=== PATIENT | male | born 1935 | race Caucasian/White ===

== ENCOUNTER 2018-08-29 13:44 | Observation (INO) ==
--- NOTE | 2018-08-29 14:37 | Emergency Department Note ---
Disposition Clinical Impression: Nonsustained ventricular tachycardia Syncope Qualifiers: Syncope type: unspecified Qualified Code(s): R55 - Syncope and collapse Disposition: Admitted As Inpatient Condition: Good Time of Disposition: 16:00 General Adult HPI - General Chief complaint: ED Arrhythmia/Palpitations Stated complaint: "passed out" Time Seen by Provider: 08/29/18 13:54 Source: patient, family (Son), EMS Mode of arrival: EMS Limitations: no limitations Nursing Notes Reviewed: Yes Vital Signs Reviewed: Yes - History of Present Illness HPI Narrative: 83-year-old male history of CAD and chronic atrial fibrillation on Coumadin presents emergency department via EMS for lightheadedness. EMS reports call out to home residency as the patient was feeling dizzy appeared cool clammy and pale. On arrival they state the patient was warm pink and in no acute distress and similar to his presentation here in the emergency department. Patient was found to be and atrial fibrillation with rapid ventricular response seen on the monitor by the commodities requirements analyst. The patient states earlier today around 10 AM ap proximately 4 hours prior to arrival he was in the bathroom shaving when he felt lightheaded and went to the living room to sit down. He felt like he was going to pass out. Denies vertiginous symptoms. Denies any fall or head injury. He denied any shortness of breath or chest pain. Denies skipping beats or racing of the heart. At this time he states he feels much better. Denies any recent il lness cough congestion. He used to see Dr. Wilcox his vending machine host/hostess and currently only sees his primary care physician. He states he has a cardiac evaluation scheduled for September and was told that he needs pacemaker. He denies any bloody stool, black tarry stool, hematemesis or hemoptysis. No recent changes to his medication. He states his recent INR check was normal but is unaware of the value. Gets it checked on a monthly basis. Pain Scale: 0 - Related Data Home Medications Medication Instructions Recorded Confirmed LORazepam [Ativan] 1 mg PO BID 11/01/17 08/29/18 Omeprazole [PriLOSEC] 20 mg PO BIDAC 11/01/17 08/29/18 Potassium Chloride [K-Tab ER] 20 meq PO DAILY 11/01/17 08/29/18 Simvastatin [Zocor] 40 mg PO HS 11/01/17 08/29/18 Atenolol [Tenormin] 50 mg PO DAILY 08/29/18 08/29/18 Carbidopa/Levodopa 1 tab PO Q6H 08/29/18 08/29/18 [Carbidopa-Levodopa 25-250 Tab] Doxazosin Mesylate [Cardura] 8 mg PO HS 08/29/18 08/29/18 Levothyroxine [Synthroid] 125 mcg PO DAILY 08/29/18 08/29/18 Losartan Potassium [Cozaar] 100 mg PO DAILY 08/29/18 08/29/18 Warfarin 08/29/18 08/29/18 Allergies Allergy/AdvReac Type Severity Reaction Status Date / Time No Known Allergies Allergy Verified 11/01/17 11:23 All systems ED: reviewed and negative except as stated. Review of Systems: As Per HPI Constitutional: Denies: fever, chills, weakness, weight change ENT ED: Denies: congestion Cardiovascular: Reports: syncope. Denies: chest pain, palpitations Respiratory: Denies: cough, dyspnea Gastrointestinal: Denies: abdominal pain, nausea, vomiting Genitourinary: Denies: dysuria Musculoskeletal: Denies: back pain Integumentary: Denies: rash Neurological: Denies: headache, weakness, numbness, vertigo Endocrine: Denies: fatigue Past Medical History - Past Medical History Attestation: Yes The following information was validated with the patient. Source: patient Medical history: Reports: atrial fibrillation, coronary artery disease, CVA, GERD, hyperlipidemia, hypertension, myocardial infarction, thyroid disease Surgical history: Reports: angioplasty/stent, appendectomy, herniorrhaphy Psychiatric history: Reports: no psych history - Social History Smoking Status: Never smoker Smokeless Tobacco Status: No Alcohol use: Reports: none Drug use: Reports: none Physical Exam - General Limitations: no limitations General appearance: alert, in no apparent distress - Head Head exam: atraumatic, normocephalic, normal inspection - Eye Eye exam: Present: normal appearance, PERRL, EOMI - ENT ENT exam: normal exam, normal oropharynx, mucous membranes moist - Neck Neck exam: Present: normal inspection, full ROM, trachea midline - Chest Chest inspection: Present: normal inspection, symmetric chest wall rise. Absent: tenderness - Respiratory Respiratory exam: Present: normal lung sounds bilaterally - Cardiovascular Cardiovascular exam: Present: tachycardia, irregular rhythm. Absent: systolic murmur, diastolic murmur - Expanded Cardiovascular Exam Peripheral pulses: 2+: radial (R), radial (L) - Abdominal Exam Abdominal exam: Present: soft, Non-Tender, normal bowel sounds. Absent: tenderness, distention, guarding, rebound, rigidity - Extremities Exam Extremities exam: Present: normal inspection, full ROM, normal capillary refill. Absent: tenderness, pedal edema - Back Exam Back exam: Present: normal inspection, full ROM. Absent: tenderness - Neurological Exam Neurological exam: Present: alert, oriented X3, CN II-XII intact - Expanded Neurological Exam Patient oriented to: Present: person, place, time Speech: Present: fluid speech Cranial nerves: EOM function (II, III, IV, ): Normal, facial sensation (V): Normal, facial palsy (VII): Normal, gag reflex (IX): Normal, spinal accessory function (XI): Normal, tongue deviation (XII): Normal Motor strength - LUE: 5/5 Motor strength - RUE: 5/5 Motor strength - LLE: 5/5 Motor strength - RLE: 5/5 Upper motor neuron exam: ángel neglect: Absent bilaterally Sensory exam upper extremity: light touch: Normal Sensory exam lower extremity: light touch: Normal - Psychiatric Psychiatric exam: Present: normal affect, normal mood - Skin Skin exam: Present: warm, dry, intact, normal color. Absent: rash, cyanosis, diaphoresis, pallor Course Course Narrative: Patient presents with a near syncopal episode. History of chronic atrial fibrillation. Per reports it was reported his heart rate was significantly elevated in the 130s. Concern for atrial fibrillation with rapid ventricular response. Workup initiated. Remains neurologically intact awake alert and oriented to person place and time. - Reevaluation(s) Reevaluation #1: Patient had non-sustained ventricular tachycardia. This was caught on the rhythm strip. Time: 14:20 Reevaluation #2: My attending Dr. Stoner spoke to the on-call vending machine host/hostess who recommends close monitoring and does not recommend initiating amiodarone at this time as the patient was asymptomatic during the run of ventricular tachycardia. Patient's labs or otherwise unremarkable. TSH within normal limits. Glucose slightly elevated. Patient will be admitted for observation given his syncopal episode and nonsustained ventricular tachycardia. - Consultations Consultation #1: Spoke with on-call hospitalist rebecca Mak to admit for syncope and unsustained ventricular tachycardia. No further orders at this time Time: 16:01 Vital Signs Temperature 97.9 F 08/29/18 13:49 Pulse Rate 95 08/29/18 13:49 Respiratory Rate 20 08/29/18 13:49 Blood Pressure 157/102 08/29/18 13:49 O2 Sat by Pulse Oximetry 98 08/29/18 13:49 Temperature 97.9 F 08/29/18 13:49 Pulse Rate 87 08/29/18 16:00 Respiratory Rate 18 08/29/18 16:00 Blood Pressure 165/82 08/29/18 16:00 O2 Sat by Pulse Oximetry 97 08/29/18 16:00 Oxygen Delivery Oxygen Delivery Room Air Medical Decision Making - MDM Narrative Medical decision making narrative: Patient was discussed with my attending physician who agrees with ED management and final disposition. They independently evaluated the patient. Please refer to their attestation to this encounter for additional information. This note was generated by [employer] voice recognition software and as a result grammatical or spelling errors may occur using this program. - Medical Records Medical records reviewed: Yes I reviewed the patient's medical records. - Lab Data Lab results reviewed: Yes I reviewed the patient's lab results. Result diagrams: 08/29/18 13:53 08/29/18 13:53 Lab Results 08/29/18 08/29/18 08/29/18 Range/Units 13:53 13:53 13:53 WBC 6.1 (4.3-11.1) K/mcL RBC 4.02 L (4.19-5.50) M/mcL Hgb 13.1 (12.9-16.9) g/dL Hct 38.8 (37.5-50.1) % MCV 96.5 (83.0-100.0) fL MCH 32.6 (28.0-33.3) pg MCHC 33.8 (31.6-35.5) g/dL RDW 14.6 H (11.5-14.5) % Plt Count 124 L (140-400) K/mcL MPV 10.7 (9.4-12.4) fL Immature Gran % 0.3 (0-4) % Seg Neutrophils % 84.6 % Lymphocytes % 10.7 % Monocytes % 3.8 % Eosinophils % 0.3 % Basophils % 0.3 % Neutrophils # 5.1 (1.6-8.9) K/mcL Lymphocytes # 0.7 (0.6-4.6) K/mcL Monocytes # 0.2 (0.0-1.3) K/mcL Eosinophils # 0.0 (0.0-0.6) K/mcL Basophils # 0.0 (0.0-0.2) K/mcL PT 30.2 H (9.4-12.1) Seconds INR 2.7 APTT 28.0 (26.0-36.0) Seconds Sodium 141 (136-145) mEq/L Potassium 4.0 (3.5-5.1) mEq/L Chloride 106 (98-107) mEq/L Carbon Dioxide 25 (23-29) mEq/L BUN 21 (8-23) mg/dL Creatinine 0.96 (0.70-1.30) mg/dL Est GFR ( Amer) > 60 (> 60) Est GFR (Non-Af Amer) > 60 (> 60) BUN/Creatinine Ratio 22 (6-26) Glucose 127 H (70-105) mg/dL Calculated Osmolality 297 (280-300) Calcium 9.1 (8.6-10.3) mg/dL Troponin I < 0.03 (< 0.04) ng/mL B-Natriuretic Peptide (Less than 100) pg/mL TSH (0.340-5.600) mcIU/mL 08/29/18 08/29/18 Range/Units 13:54 14:19 WBC (4.3-11.1) K/mcL RBC (4.19-5.50) M/mcL Hgb (12.9-16.9) g/dL Hct (37.5-50.1) % MCV (83.0-100.0) fL MCH (28.0-33.3) pg MCHC (31.6-35.5) g/dL RDW (11.5-14.5) % Plt Count (140-400) K/mcL MPV (9.4-12.4) fL Immature Gran % (0-4) % Seg Neutrophils % % Lymphocytes % % Monocytes % % Eosinophils % % Basophils % % Neutrophils # (1.6-8.9) K/mcL Lymphocytes # (0.6-4.6) K/mcL Monocytes # (0.0-1.3) K/mcL Eosinophils # (0.0-0.6) K/mcL Basophils # (0.0-0.2) K/mcL PT (9.4-12.1) Seconds INR APTT (26.0-36.0) Seconds Sodium (136-145) mEq/L Potassium (3.5-5.1) mEq/L Chloride (98-107) mEq/L Carbon Dioxide (23-29) mEq/L BUN (8-23) mg/dL Creatinine (0.70-1.30) mg/dL Est GFR ( Amer) (> 60) Est GFR (Non-Af Amer) (> 60) BUN/Creatinine Ratio (6-26) Glucose (70-105) mg/dL Calculated Osmolality (280-300) Calcium (8.6-10.3) mg/dL Troponin I (< 0.04) ng/mL B-Natriuretic Peptide 91 (Less than 100) pg/mL TSH 2.647 (0.340-5.600) mcIU/mL - Radiology Data Radiology results reviewed: Yes I reviewed the patient's radiology results. Chest X-Ray 08/29/18 13:53 IMPRESSION: Stable chronic mild elevation left hemidiaphragm with chronic atelectasis or scarring left lower lobe. No definite acute pulmonary finding. D/ / Kaushik Osman MD / Kaushik Osman MD Interpreting Provider: Kaushik Osman MD - EKG Data EKG #1 EKG attestation: Yes I reviewed and interpreted this EKG. EKG results narrative: EKG performed 1349 atrial fibrillation with a rate of 103, normal axis, good R wave progression, no ST elevation or depression. Compared to a prior EKG performed 01/08/2014 which at that time showed atrial fibrillation with Q waves in the inferior leads that are not present on today's EKG. No acute ischemic changes.
[2018-08-29 14:40] LABS: Basophils % 0.3 %; Eosinophils % 0.3 %; Hematocrit 38.8 % (37.5-50.1); Hemoglobin 13.1 g/dL (12.9-16.9); Immature Granulocytes % 0.3 % (0-4); Lymphocytes # 0.7 K/mcL (0.6-4.6); Lymphocytes % 10.7 %; Mean Corpuscular HGB Conc 33.8 g/dL (31.6-35.5); Mean Corpuscular Hemoglobin 32.6 pg (28.0-33.3); Mean Corpuscular Volume 96.5 fL (83.0-100.0); Mean Platelet Volume 10.7 fL (9.4-12.4); Monocytes # 0.2 K/mcL (0.0-1.3); Monocytes % 3.8 %; Neutrophils # 5.1 K/mcL (1.6-8.9); Platelet Count 124 K/mcL (140-400); Red Blood Count 4.02 M/mcL (4.19-5.50); Red Cell Distribution Width 14.6 % (11.5-14.5); Segmented Neutrophils % 84.6 %
[2018-08-29 14:51] LABS: INR 2.7; Prothrombin Time 30.2 Seconds (9.4-12.1)
[2018-08-29 14:55] LABS: Troponin I < 0.03 ng/mL (< 0.04)
[2018-08-29 15:06] LABS: BUN/Creatinine Ratio 22 (6-26); Blood Urea Nitrogen 21 mg/dL (8-23); Calcium 9.1 mg/dL (8.6-10.3); Carbon Dioxide 25 mEq/L (23-29); Chloride 106 mEq/L (98-107); Glucose 127 mg/dL (70-105); Osmolality,Calculated 297 (280-300); Sodium 141 mEq/L (136-145); eGFR For Non-African Americans > 60 (> 60)
[2018-08-29] MEDS ORDERED: *HR* FentaNYL (PF) 100 MCG/2 ML VIAL IVP ONE (16:02)
--- NOTE | 2018-08-29 16:21 | Emergency Department Note ---
Disposition Clinical Impression: Nonsustained ventricular tachycardia Syncope Qualifiers: Syncope type: unspecified Qualified Code(s): R55 - Syncope and collapse Disposition: Admitted As Inpatient Condition: Good General Adult HPI - General Chief complaint: ED Arrhythmia/Palpitations Stated complaint: "passed out" Time Seen by Provider: 08/29/18 13:54 Source: patient, family (Son), EMS Mode of arrival: EMS Limitations: no limitations - History of Present Illness Pain Scale: 0 - Related Data Home Medications Medication Instructions Recorded Confirmed LORazepam [Ativan] 1 mg PO BID 11/01/17 08/29/18 Omeprazole [PriLOSEC] 20 mg PO BIDAC 11/01/17 08/29/18 Potassium Chloride [K-Tab ER] 20 meq PO DAILY 11/01/17 08/29/18 Simvastatin [Zocor] 40 mg PO HS 11/01/17 08/29/18 Atenolol [Tenormin] 50 mg PO DAILY 08/29/18 08/29/18 Carbidopa/Levodopa 1 tab PO Q6H 08/29/18 08/29/18 [Carbidopa-Levodopa 25-250 Tab] Doxazosin Mesylate [Cardura] 8 mg PO HS 08/29/18 08/29/18 Levothyroxine [Synthroid] 125 mcg PO DAILY 08/29/18 08/29/18 Losartan Potassium [Cozaar] 100 mg PO DAILY 08/29/18 08/29/18 Warfarin 08/29/18 08/29/18 Allergies Allergy/AdvReac Type Severity Reaction Status Date / Time No Known Allergies Allergy Verified 11/01/17 11:23 Constitutional: Denies: fever, chills, weakness, weight change ENT ED: Denies: congestion Cardiovascular: Reports: syncope. Denies: chest pain, palpitations Respiratory: Denies: cough, dyspnea Gastrointestinal: Denies: abdominal pain, nausea, vomiting Genitourinary: Denies: dysuria Musculoskeletal: Denies: back pain Integumentary: Denies: rash Neurological: Denies: headache, weakness, numbness, vertigo Endocrine: Denies: fatigue Past Medical History - Past Medical History Medical history: Reports: atrial fibrillation, coronary artery disease, CVA, GERD, hyperlipidemia, hypertension, myocardial infarction, thyroid disease Surgical history: Reports: angioplasty/stent, appendectomy, herniorrhaphy Psychiatric history: Reports: no psych history - Social History Smoking Status: Never smoker Smokeless Tobacco Status: No Alcohol use: Reports: none Drug use: Reports: none Physical Exam - General Limitations: no limitations General appearance: alert, in no apparent distress Course Vital Signs Temperature 97.9 F 08/29/18 13:49 Pulse Rate 95 08/29/18 13:49 Respiratory Rate 20 08/29/18 13:49 Blood Pressure 157/102 08/29/18 13:49 O2 Sat by Pulse Oximetry 98 08/29/18 13:49 Temperature 97.9 F 08/29/18 13:49 Pulse Rate 100 08/29/18 18:55 Respiratory Rate 16 08/29/18 18:55 Blood Pressure 146/71 08/29/18 18:55 O2 Sat by Pulse Oximetry 95 08/29/18 18:55 Oxygen Delivery Oxygen Delivery Room Air Medical Decision Making - Lab Data Result diagrams: 08/29/18 13:53 08/29/18 13:53 Lab Results 08/29/18 08/29/18 08/29/18 Range/Units 13:53 13:53 13:53 WBC 6.1 (4.3-11.1) K/mcL RBC 4.02 L (4.19-5.50) M/mcL Hgb 13.1 (12.9-16.9) g/dL Hct 38.8 (37.5-50.1) % MCV 96.5 (83.0-100.0) fL MCH 32.6 (28.0-33.3) pg MCHC 33.8 (31.6-35.5) g/dL RDW 14.6 H (11.5-14.5) % Plt Count 124 L (140-400) K/mcL MPV 10.7 (9.4-12.4) fL Immature Gran % 0.3 (0-4) % Seg Neutrophils % 84.6 % Lymphocytes % 10.7 % Monocytes % 3.8 % Eosinophils % 0.3 % Basophils % 0.3 % Neutrophils # 5.1 (1.6-8.9) K/mcL Lymphocytes # 0.7 (0.6-4.6) K/mcL Monocytes # 0.2 (0.0-1.3) K/mcL Eosinophils # 0.0 (0.0-0.6) K/mcL Basophils # 0.0 (0.0-0.2) K/mcL PT 30.2 H (9.4-12.1) Seconds INR 2.7 APTT 28.0 (26.0-36.0) Seconds Sodium 141 (136-145) mEq/L Potassium 4.0 (3.5-5.1) mEq/L Chloride 106 (98-107) mEq/L Carbon Dioxide 25 (23-29) mEq/L BUN 21 (8-23) mg/dL Creatinine 0.96 (0.70-1.30) mg/dL Est GFR ( Amer) > 60 (> 60) Est GFR (Non-Af Amer) > 60 (> 60) BUN/Creatinine Ratio 22 (6-26) Glucose 127 H (70-105) mg/dL Calculated Osmolality 297 (280-300) Calcium 9.1 (8.6-10.3) mg/dL Troponin I < 0.03 (< 0.04) ng/mL B-Natriuretic Peptide (Less than 100) pg/mL TSH (0.340-5.600) mcIU/mL 08/29/18 08/29/18 Range/Units 13:54 14:19 WBC (4.3-11.1) K/mcL RBC (4.19-5.50) M/mcL Hgb (12.9-16.9) g/dL Hct (37.5-50.1) % MCV (83.0-100.0) fL MCH (28.0-33.3) pg MCHC (31.6-35.5) g/dL RDW (11.5-14.5) % Plt Count (140-400) K/mcL MPV (9.4-12.4) fL Immature Gran % (0-4) % Seg Neutrophils % % Lymphocytes % % Monocytes % % Eosinophils % % Basophils % % Neutrophils # (1.6-8.9) K/mcL Lymphocytes # (0.6-4.6) K/mcL Monocytes # (0.0-1.3) K/mcL Eosinophils # (0.0-0.6) K/mcL Basophils # (0.0-0.2) K/mcL PT (9.4-12.1) Seconds INR APTT (26.0-36.0) Seconds Sodium (136-145) mEq/L Potassium (3.5-5.1) mEq/L Chloride (98-107) mEq/L Carbon Dioxide (23-29) mEq/L BUN (8-23) mg/dL Creatinine (0.70-1.30) mg/dL Est GFR ( Amer) (> 60) Est GFR (Non-Af Amer) (> 60) BUN/Creatinine Ratio (6-26) Glucose (70-105) mg/dL Calculated Osmolality (280-300) Calcium (8.6-10.3) mg/dL Troponin I (< 0.04) ng/mL B-Natriuretic Peptide 91 (Less than 100) pg/mL TSH 2.647 (0.340-5.600) mcIU/mL Attestation Statement - Attestation Attestation: Resident Attestation: I examined this patient and my medical decision making was reviewed with the Resident Physician. I agree with the documented findings, disposition and treatment plan as described except to the extent set forth bel ow. We independently had [id number] contact with the patient Please see resident note for further details and disposition. Patient has previous coronary artery disease with last intervention appro ximately 15 years ago, angioplasty, has a history of A. fib on Coumadin. The patient is here for evaluation of near-syncopal episode. Patient felt dizzy and as if he was given a pass out. The patient was brought to the emergency department for further evaluation. While in the emergency department he did have an episode of wide complex tachycardia concerning for V. tach. A call was placed to cardiology, Dr. Ferreira, who recommends pad placement as well as intervention if patient becomes symptomatic with episodes. This information was relayed to the hospitalist. Awake alert and oriented 3, irregular rate and rhythm, abdomen soft nontender palpation, clear to auscultation bilaterally, no significant swelling of the lower extremities. Other than the initial run of V. tach patient has been stable. Hospitalist at bedside concern for A. fib with aberrancy and not V. tach. Risks and benefits discussed. Patient not stable for discharge. Patient will be admitted for further monitoring.
[2018-08-29] MEDS ORDERED: Naloxone 0.4 MG/ML INJ IVP PRN (17:27)
--- NOTE | 2018-08-29 18:01 | Internal Med History&Physical ---
Date of Encounter: 08/29/18 Time of Encounter: 17:30 Internal Medicine - H&P: HPI Chief complaint: Dizziness Admitted From: Home Plans for Post Hospital Care: Home History of present illness: The patient is an 83-year-old man. He has been treated for atrial fibrillation for at least 40 years. He has been on Coumadin for about a few years. He has had underlying coronary artery disease and hypertension. It was today around noon, when he developed dizziness. It happened shortly after shaving. Suddenly, he developed a feeling of spinning followed by nausea and vomiting. He vomited a few times. His skin became pale and clammy. He was able to walk to the living room to get some sitting. The symptoms described above subsided in about 30-45 minutes. When EMS arrived, he felt good; not having any symptoms. The vitals they took a at his residence where normal. When being in the emergency room he developed a short run of fast heart beating, interpreted as nonsustained ventricular tachycardia. For me, it looks like an atrial fibrillation with aberrancy. The patient felt good yesterday; not having any particular symptoms. He also felt good today morning. I met him in the emergency room. He is not voicing any particular symptoms. His telemetry showing atrial fibrillation with ventricular rate of about 100. PAST MEDICAL HX: The patient has had atrial fibrillation for at least 40 years. He does have coronary artery disease. It was more than 20 years ago when he had a myocardial infarction. They did cardiac catheterization. They did not put any interventions (including stents). He is also treated for hypertension, hyperlipidemia, GERD and restless leg syndrome. He also takes Ativan for anxiety. The patient was treated for prostate cancer with radiationseveral years ago. REVIEW OF SYSTEMS: All 14 organ systems were reviewed by me with the patient. Positive and pertinent negative findings are listed above. The rest of organ systems is negative. PHYSICAL EXAM: Skin: Free of rash and discoloration. Eyes: Sclera is white. There is no discharge from eyes. ENMT: Oral/pharyngeal mucosa is normal in appearance. There is no discharge from nose or ears. Respiratory: Normal breath sounds with no crackles and wheezes bilaterally. CV: Heart is regular with no gallop or murmur. GI: Abdomen is flat and soft with no palpable mass or visceromegaly. : There is no tenderness in patient's flanks bilaterally. Neuro exam: He has good strength in upper and lower extremities. He has normal eye movements. Psychiatric: He has normal affect. His thought process is appropriate to the situation. ADDITIONAL DATA: His CBC shows normal findings. Pro time INR is 2.7. He has normal BMP, troponin, BNP and TSH. A/P: Near syncope. It was likely secondary to short lasting of vertigo. It could be triggered by shaving. He has underlying atrial fibrillation. His pro time INR is therapeutic. We will be watching his heart rate/rhythm in telemetry floor. I am going to substitute his atenolol with oral Lopressor. I feel, that he does not need to take the doxazosin (Cardura). Coronary artery disease. We will keep him on Lopressor and Zocor. He does not need aspirin, as he takes her Coumadin. Hypertension. Under control. It will be treated with Lopressor and nifedipine ER. Hypothyroidism. Under control. We will continue Synthroid. GERD. Under control. We will continue Prilosec. Past Med Surg Social Fam HX - Past Medical History Medical history: atrial fibrillation, coronary artery disease, CVA, GERD, hyperlipidemia, hypertension, myocardial infarction, thyroid disease Additional medical history: Parkinson Psychiatric history: no psych history - Past Surgical History Surgical History: angioplasty/stent, appendectomy, herniorrhaphy - Social History Smoking Status: Never smoker Smokeless Tobacco Status: No Alcohol use: none Drug use: none Internal Medicine - H&P: Meds LORazepam [Ativan] 1 mg PO BID 11/01/17 [History] Omeprazole [PriLOSEC] 20 mg PO BIDAC 11/01/17 [History] Potassium Chloride [K-Tab ER] 20 meq PO DAILY 11/01/17 [History] Simvastatin [Zocor] 40 mg PO HS 11/01/17 [History] Atenolol [Tenormin] 50 mg PO DAILY 08/29/18 [History] Carbidopa/Levodopa [Carbidopa-Levodopa 25-250 Tab] 1 tab PO Q6H 08/29/18 [History] Doxazosin Mesylate [Cardura] 8 mg PO HS 08/29/18 [History] Levothyroxine [Synthroid] 125 mcg PO DAILY 08/29/18 [History] Losartan Potassium [Cozaar] 100 mg PO DAILY 08/29/18 [History] Warfarin 08/29/18 [History] Allergy/AdvReac Type Severity Reaction Status Date / Time No Known Allergies Allergy Verified 11/01/17 11:23 - Constitutional Vitals: Temp Pulse Resp BP Pulse Ox 97.9 F 87 18 165/82 97 08/29/18 13:49 08/29/18 16:00 08/29/18 16:00 08/29/18 16:00 08/29/18 16:00 General appearance: Present: A&O X 3, no acute distress, answers questions appropriately Exam: xx Internal Med - H&P Results - Labs CBC & Chem 7: 08/29/18 13:53 08/29/18 13:53 Labs: Short CBC 08/29/18 Range/Units 13:53 WBC 6.1 (4.3-11.1) K/mcL Hgb 13.1 (12.9-16.9) g/dL Hct 38.8 (37.5-50.1) % Plt Count 124 L (140-400) K/mcL Neutrophils # 5.1 (1.6-8.9) K/mcL BMP 08/29/18 13:53 Sodium 141 Potassium 4.0 Chloride 106 Carbon Dioxide 25 BUN 21 Creatinine 0.96 Glucose 127 H Calcium 9.1 Cardiac Enzymes 08/29/18 Range/Units 13:53 Troponin I < 0.03 (< 0.04) ng/mL - Impressions ITS Impressions Chest X-Ray 08/29/18 13:53 IMPRESSION: Stable chronic mild elevation left hemidiaphragm with chronic atelectasis or scarring left lower lobe. No definite acute pulmonary finding. D/ / Kaushik Osman MD / Kaushik Osman MD Interpreting Provider: Kaushik Osman MD - Assessment and plan (1) Near syncope Current Visit: Yes Status: Acute (2) AF (atrial fibrillation) Current Visit: Yes Status: Chronic Qualifiers: Atrial fibrillation type: chronic Qualified Code(s): I48.2 - Chronic atrial fibrillation (3) CAD (coronary artery disease) Current Visit: Yes Status: Acute Qualifiers: Coronary Disease-Associated Artery/Lesion type: [place] artery [place] vs. tr ansplanted heart: [place] heart Associated angina: without angina Qualified Code(s): I25.10 - Atherosclerotic heart disease of [place] coronary artery without angina pectoris (4) HTN (hypertension) Current Visit: Yes Status: Acute Qualifiers: Hypertension type: essential hypertension Qualified Code(s): I10 - Essential (primary) hypertension (5) Hypothyroidism (acquired) Current Visit: Yes Status: Chronic (6) GERD (gastroesophageal reflux disease) Current Visit: Yes Status: Acute Qualifiers: Esophagitis presence: esophagitis presence not specified Qualified Code(s): K21.9 - Gastro-esophageal reflux disease without esophagitis - Time Spent With Patient Total time spent is greater than 50% in coordination of care (as documented) at patient's floor/unit and/or counseling patient: 25 - 35 minutes - VTE Reasons for not Prescribing Prophylaxis: Not indicated-Anticoagulated or INR therapeutic Deep Vein Thrombosis/Pulmonary Embolism Present on Admission: No
[2018-08-29] MEDS: *HR* LORazepam 1 MG TABLET PO SCH (23:16)
[2018-08-29] MEDS: Carbidopa/Levodopa 25/250 TABLET PO SCH ×2 (23:21→23:24)
[2018-08-29] MEDS ORDERED: *HR* Warfarin 3 MG TABLET PO ONE (23:59)
[2018-08-30 06:06] LABS: INR 2.2; Prothrombin Time 24.8 Seconds (9.4-12.1)
[2018-08-30] MEDS: Carbidopa/Levodopa 25/250 TABLET PO SCH ×3 (06:37→16:50)
--- NOTE | 2018-08-30 09:15 | Electrocardiograph Report ---
[facility] Test Date: 2018-08-29 Pat Name: Roldan Hughes Department: EXAMC2 Room: 2NE26 Gender: M [employer]: : 1935 Requested By: Julio Cesar Stoner Order Number: [id number] Reading MD: Harvey Lyles Measurements Intervals [place] Rate: 103 P: DE: QRS: 18 QRSD: 88 T: 58 QT: 354 QTc: 464 Interpretive Statements Atrial fibrillation Electronically Signed On 08-30-2018 9:13:42 EDT by Harvey Lyles
--- NOTE | 2018-08-30 09:22 | Cardiology Consult Note ---
<Joaquim Garcia - Last Filed: 08/30/18 09:42> Date of Encounter: 08/30/18 Time of Encounter: 09:19 Assessment and Plan (1) Near syncope Current Visit: Yes Status: Acute Presented with near syncope--dizziness, pale and diaphretic, short of breath, n/v. Did not lose consciousness yesterday, but admits to 2 syncopal events in the past year. Known A-Fib, anticoagulated on Coumadin. Rhythm strips and telemetry reviewed. Multiple episodes of A-Fib RVR with abberancy. Overall rate controlled--AVG HR 75 past 12 hours. Orthostatic vitals negative. Atenolol and Cardura held on admission. Lopressor 25mg BID was started. No recent cardiac testing. TTE to evaluate structure and function. Continue to follow. (2) AF (atrial fibrillation) Current Visit: Yes Status: Chronic Known longstanding hx of A-Fib, presumably chronic. Was on Atenolol at home, held on admission. Lopressor 25mg BID was started--agree. Multiple episodes of A-Fib RVR with aberrancy. Add low dose BB--Toprol XL 25mg daily. Anticoagulated on Coumadin, INR 2.2. Qualifiers: Atrial fibrillation type: chronic Qualified Code(s): I48.2 - Chronic atrial fibrillation (3) CAD (coronary artery disease) Current Visit: Yes Status: Chronic Reported hx of CAD with CO in the remote past. Reports possible PTCA at that time, but not stenting. Denies chest pain. Troponin negative. Check TTE. Statin, BB. Qualifiers: Coronary Disease-Associated Artery/Lesion type: [place] artery [place] vs. transplanted heart: [place] heart Associated angina: without angina Qualified Code(s): I25.10 - Atherosclerotic heart disease of [place] coronary artery without angina pectoris Discussion w patient/family: The assessment and plan as outlined above was discussed with the patient and/or family members who expressed understanding and agreement. All questions were answered. Thank you for involving us in the care of your patient. Please call with any questions. I will discuss all the above with Dr. Ferreira and make changes as necessary. History of Present Illness Consult date: 08/30/18 Requesting physician: Kody Valenzuela Consult reason: near syncope Chief complaint: dizziness History of present illness: Mr. Hughes is a 83 year old male with PMH of A-fib anticoagulated on Coumadin, HTN, HLD, CVA, CAD with hx of CO in the remote past and reported PTCA. Yesterday around noon he developed dizziness while standing, shortly after shaving, had nausea and vomiting. He became pale and diaphoretic. He did not lose consciousness, but reports 2 syncopal events in the past year. In the ED he was noted to have wide complex tachycardia/concern for VT. On rhythm strip review it is irregular and appears to be A-Fib with aberrancy, not NSVT. He reports feeling well this AM with no acute complaints. He does not follow with a flight test shop mechanic and has had no recent cardiac testing. Troponin negative. Cardiology consulted for further recs. Past Med Surg Social Fam HX - Past Medical History Medical history: atrial fibrillation, coronary artery disease, CVA, GERD, hyperlipidemia, hypertension, myocardial infarction, thyroid disease Additional medical history: Parkinson Psychiatric history: no psych history - Past Surgical History Surgical History: angioplasty/stent, appendectomy, herniorrhaphy - Social History Smoking Status: Never smoker Smokeless Tobacco Status: No Alcohol use: none Drug use: none - Family History Father Name: Roldan Hughes Sr Living Status: Age at : 63 Cause of : Heart attack Hx Family Cardiac Disorders: Yes Hx Family Respiratory Disorders: Yes (asthma) Hx Family Cancer: No Hx Family GI Disorders: No Hx Family Genitourinary Disorders: No Hx Family Endocrine Disorder: No Hx Family Musculoskeletal Disorders: No Hx Family Neuromuscular Disorders: No Hx Family Neurologic Disorders: No Hx Family HEENT Disorders: No Hx Family Autoimmune Disorders: No Hx Family Reproductive Disorders: No Hx Family Psychosocial Disorders: No Hx Family Medical Disorders: No Mother Name: Yesika Living Status: Age at : 72 Cause of : Heart attack Hx Family Cardiac Disorders: Yes Hx Family Respiratory Disorders: No Hx Family Cancer: No Hx Family GI Disorders: No Hx Family Genitourinary Disorders: No Hx Family Endocrine Disorder: No Hx Family Musculoskeletal Disorders: No Hx Family Neuromuscular Disorders: No Hx Family Neurologic Disorders: No Hx Family HEENT Disorders: No Hx Family Autoimmune Disorders: No Hx Family Reproductive Disorders: No Hx Family Psychosocial Disorders: No Hx Family Medical Disorders: No Medications and Allergies LORazepam [Ativan] 1 mg PO BID 11/01/17 [History] Omeprazole [PriLOSEC] 20 mg PO BIDAC 11/01/17 [History] Potassium Chloride [K-Tab ER] 20 meq PO DAILY 11/01/17 [History] Simvastatin [Zocor] 40 mg PO HS 11/01/17 [History] Atenolol [Tenormin] 50 mg PO DAILY 08/29/18 [History] Carbidopa/Levodopa [Carbidopa-Levodopa 25-250 Tab] 1 tab PO Q6H 08/29/18 [History] Doxazosin Mesylate [Cardura] 8 mg PO HS 08/29/18 [History] Levothyroxine [Synthroid] 125 mcg PO DAILY 08/29/18 [History] Losartan Potassium [Cozaar] 100 mg PO DAILY 08/29/18 [History] Warfarin [Coumadin] 3 mg PO DAILY 08/29/18 [History] Allergy/AdvReac Type Severity Reaction Status Date / Time No Known Allergies Allergy Verified 11/01/17 11:23 All Systems Review: The remainder of the systems were reviewed and are negative - Cardiovascular Cardiovascular: as per HPI, diaphoresis, dyspnea on exertion, lightheadedness, syncope - Neurological Neurological: dizziness, syncope Physical Examination Vital Signs, Last 4 Hours Temp Pulse Resp BP BP BP BP 08/30/18 07:20 97.8 F 78 18 139/86 08/30/18 06:29 156/95 154/106 139/103 Pulse Ox 08/30/18 07:20 94 08/30/18 06:29 Vital Signs Temp Pulse Resp BP BP BP BP 08/30/18 07:20 97.8 F 78 18 139/86 08/30/18 06:29 156/95 154/106 139/103 08/30/18 05:00 98.2 F 68 16 155/86 08/30/18 01:12 98.1 F 73 18 121/78 08/29/18 22:40 08/29/18 21:12 98.7 F 93 18 169/98 08/29/18 20:18 73 16 170/95 08/29/18 18:55 100 16 146/71 08/29/18 17:00 169/98 08/29/18 16:30 165/94 08/29/18 16:00 87 18 165/82 08/29/18 15:30 92 16 144/87 08/29/18 15:00 98 20 162/104 08/29/18 14:30 104 20 188/135 08/29/18 14:00 101 16 180/93 08/29/18 13:56 08/29/18 13:49 97.9 F 95 20 157/102 Pulse Ox 08/30/18 07:20 94 08/30/18 06:29 08/30/18 05:00 94 08/30/18 01:12 93 08/29/18 22:40 92 08/29/18 21:12 94 08/29/18 20:18 95 08/29/18 18:55 95 08/29/18 17:00 08/29/18 16:30 08/29/18 16:00 97 08/29/18 15:30 97 08/29/18 15:00 97 08/29/18 14:30 96 08/29/18 14:00 98 08/29/18 13:56 97 08/29/18 13:49 98 Intake and Output 08/29/18 08/30/18 08/30/18 23:59 07:59 15:59 Intake Total 60 / 60 0 / 0 Output Total 350 / 350 Balance 60 / 60 -350 / -350 Intake: Oral 60 / 60 0 / 0 Output: Urine 350 / 350 Other: # Voids 0 0 Weight 88.8 kg 88.8 kg Patient Weight 08/30/18 23:59 Weight 88.8 kg General: Conversant, No Apparent Distress HEENT: Atraumatic, Normocephaly, Mucus Membranes Moist Neck: No JVD, Normal carotid pulses Cardiac: Other (irregularly irregular) Lungs: Normal Breath Sounds, No Wheeze, Rales, Rhonchi Neuro: Alert and responsive, No focal deficits noted Abdomen: Soft, Non-Tender Skin: No rashes noted on visualized skin Musculoskeletal: No Chest Wall Tenderness Extremities: No Clubbing, No Cyanosis, No Edema, Normal Pulses Results 08/29/18 13:53 08/29/18 13:53 Lab Results 08/29/18 08/29/18 08/29/18 13:53 13:53 13:53 WBC 6.1 Hgb 13.1 Hct 38.8 Plt Count 124 L INR 2.7 APTT 28.0 Sodium 141 Potassium 4.0 Chloride 106 Carbon Dioxide 25 BUN 21 Creatinine 0.96 Glucose 127 H Calcium 9.1 Troponin I < 0.03 B-Natriuretic Peptide TSH 08/29/18 08/29/18 08/30/18 13:54 14:19 05:33 WBC Hgb Hct Plt Count INR 2.2 APTT Sodium Potassium Chloride Carbon Dioxide BUN Creatinine Glucose Calcium Troponin I B-Natriuretic Peptide 91 TSH 2.647 Short CBC 08/29/18 Range/Units 13:53 WBC 6.1 (4.3-11.1) K/mcL Hgb 13.1 (12.9-16.9) g/dL Hct 38.8 (37.5-50.1) % Plt Count 124 L (140-400) K/mcL Neutrophils # 5.1 (1.6-8.9) K/mcL BMP 08/29/18 Range/Units 13:53 Sodium 141 (136-145) mEq/L Potassium 4.0 (3.5-5.1) mEq/L Chloride 106 (98-107) mEq/L Carbon Dioxide 25 (23-29) mEq/L BUN 21 (8-23) mg/dL Creatinine 0.96 (0.70-1.30) mg/dL Glucose 127 H (70-105) mg/dL Calcium 9.1 (8.6-10.3) mg/dL Cardiac Enzymes 08/29/18 Range/Units 13:53 Troponin I < 0.03 (< 0.04) ng/mL Impressions Chest X-Ray 08/29/18 13:53 IMPRESSION: Stable chronic mild elevation left hemidiaphragm with chronic atelectasis or scarring left lower lobe. No definite acute pulmonary finding. D/ / Kaushik Osman MD / Kaushik Osman MD Interpreting Provider: Kaushik Osman MD Active Medications Carbidopa/Levodopa (Sinemet) 1 each PO Q6HR [facility] Stop: 02/28/19 18:01 Last Admin: 08/30/18 06:37 Dose: 1 each Levothyroxine Sodium (Synthroid) 125 mcg PO DAILY@0630 [facility] Stop: 03/01/19 06:31 Last Admin: 08/30/18 06:37 Dose: 125 mcg Lorazepam (Ativan) 1 mg PO BID [facility] Stop: 02/28/19 21:01 Last Admin: 08/29/18 23:16 Dose: 1 mg Losartan Potassium (Cozaar) 100 mg PO DAILY [facility] Stop: 03/01/19 09:01 Metoprolol Tartrate (Lopressor) 25 mg PO BID [facility] Stop: 02/28/19 21:01 Last Admin: 08/29/18 23:16 Dose: 25 mg Naloxone HCl (Narcan) 0.4 mg IVP Q2MIN PRN PRN Reason: SEE COMMENTS Stop: 02/28/19 17:28 Omeprazole (Prilosec) 20 mg PO BIDAC [facility]; Protocol Stop: 03/01/19 07:31 Potassium Chloride (Potassium Chloride) 20 meq PO DAILY [facility] Stop: 03/01/19 09:01 Simvastatin (Zocor) 40 mg PO HS [facility]; Protocol Stop: 02/28/19 21:01 Last Admin: 08/29/18 23:16 Dose: 40 mg Warfarin Sodium (Coumadin Perpt) 1 each PO DAILY@1800 PRN PRN Reason: SEE COMMENTS Stop: 03/01/19 18:01 - EKG Interpretation EKG results cardiology: personally reviewed, other (12 hr tele AVG HR 75, A-Fib with intermittent RVR/aberrancy) Consult Discharge Plan - Plan Referrals: Ezequiel Hoffman DO [Primary Care Provider] - <Jude Ferreira - Last Filed: 08/30/18 12:15> - Attending Attestation I have personally performed a face to face evaluation on this patient. I have reviewed and agree with the care plan. History and Exam by me shows: 83-year-old male with history of coronary artery disease remote CO 20 years ago, paroxysmal atrial fibrillation on Coumadin presents after an episode of a spinning sensation with nausea vomiting. A white count complex was noted also in the emergency department. Negative cardiac markers and denies any chest pain. Likely aberrant atrial fibrillation upon review of telemetry strips. In the setting of dyspnea sensation likely noncardiac in etiology as well. We will titrate Toprol and hold carvedilol due to hypotension. Consider outpatient isch emic workup with flight test shop mechanic. No further cardiac testing or procedures plan Assessment and Plan Discussion w patient/family: The assessment and plan as outlined above was discussed with the patient and/or family members who expressed understanding and agreement. All questions were answered. Thank you for involving us in the care of your patient. Please call with any questions. History of Present Illness History of present illness: Mr. Hughes is a 83 year old male All Systems Review: The remainder of the systems were reviewed and are negative Results 08/29/18 13:53 08/29/18 13:53 Lab Results 08/29/18 08/29/18 08/29/18 13:53 13:53 13:53 WBC 6.1 Hgb 13.1 Hct 38.8 Plt Count 124 L INR 2.7 APTT 28.0 Sodium 141 Potassium 4.0 Chloride 106 Carbon Dioxide 25 BUN 21 Creatinine 0.96 Glucose 127 H Calcium 9.1 Troponin I < 0.03 B-Natriuretic Peptide TSH 08/29/18 08/29/18 08/30/18 13:54 14:19 05:33 WBC Hgb Hct Plt Count INR 2.2 APTT Sodium Potassium Chloride Carbon Dioxide BUN Creatinine Glucose Calcium Troponin I B-Natriuretic Peptide 91 TSH 2.647
--- NOTE | 2018-08-30 17:47 | Internal Med Progress Note ---
Hospitalist Progress Note - Encounter Date of Encounter: 08/30/18 Time of Encounter: 17:00 - Subjective Interval History: SUBJECTIVE: The patient feels good. He has not had any more dizzy spells since admitting him to the regular floor. Denies chest pain. Denies resting dyspnea and dyspnea at walking. Denies coughing and wheezing. Denies abdominal pain, nausea and vomiting. He has normal urination. OBJECTIVE: Skin: Free of rash and discoloration. ENMT: Oral/pharyngeal mucosa is normal in appearance. Eyes: Sclera is white. There is no discharge from eyes. Respiratory: Normal breath sounds; no crackles or wheezes. CV: Heart is irregularly irregular with no audible murmur. GI: Abdomen is soft and not tender. There is no palpable mass or visceromegaly. Neuro: There is no focal deficits. ADDITIONAL DATA: His pro time INR is 2.2; 2.7 yesterday. Telemetry shows atrial fibrillation with controlled ventricular rate. ASSESSMENT AND PLAN: Near syncope. He had true vertigo with nausea and vomiting yesterday before coming to the emergency room. It lasted for about 30-40 minutes. He did have a few episodes of fast heart beating, when observed in the emergency department. It was atrial fibrillation with RVR. Aberrancy was noticed on telemetry strips. Cardiology is consulted. They ordered echocardiogram. Coronary artery disease. Clinically under control. We will continue Lopressor. No need for aspirin, as he takes warfarin. We will continue Zocor. Hypertension. Under control. We will continue Lopressor and Cozaar. Hypothyroidism. Clinically under control. His THS was checked; normal. GERD. Under control. We will continue Prilosec. DISPOSITION: I anticipate her he is discharged tomorrow. - Exam Vitals: Temp Pulse Resp BP Pulse Ox 98.8 F 84 18 154/99 94 08/30/18 15:58 08/30/18 15:58 08/30/18 15:58 08/30/18 15:58 08/30/18 15:58 Exam: xx - Assessment and Plan (1) Near syncope Current Visit: Yes Status: Acute (2) AF (atrial fibrillation) Current Visit: Yes Status: Chronic (3) CAD (coronary artery disease) Current Visit: Yes Status: Chronic (4) HTN (hypertension) Current Visit: Yes Status: Acute (5) Hypothyroidism (acquired) Current Visit: Yes Status: Chronic (6) GERD (gastroesophageal reflux disease) Current Visit: Yes Status: Acute - Time Spent with Patient Total time spent is greater than 50% in coordination of care (as documented) at patient's floor/unit and/or counseling patient: 25 - 35 minutes Plan of Care Discussed with: patient (and family..) Internal Medicine: Result - Labs CBC & Chem 7: 08/29/18 13:53 08/29/18 13:53 - ABG Interpretation ABG results: PT/INR, D-dimer PT 24.8 Seconds (9.4-12.1) H 08/30/18 05:33 - Impressions Impressions Echocardiogram 08/30/18 23:53 Impressions: LVEF 60-65%. Normal LV chamber size, wall thickness and systolic function. Normal right ventricular structure and function. Mildly dilated left atrium. Mild mitral regurgitation. - VTE Reasons for not Prescribing Prophylaxis: Not indicated-Anticoagulated or INR therapeutic Deep Vein Thrombosis/Pulmonary Embolism Present on Admission: No Consult Discharge Plan - Plan Referrals: Ezequiel Hoffman DO [Primary Care Provider] - (2) AF (atrial fibrillation) Qualifiers: Atrial fibrillation type: chronic Qualified Code(s): I48.2 - Chronic atrial fibrillation (3) CAD (coronary artery disease) Qualifiers: Coronary Disease-Associated Artery/Lesion type: [place] artery [place] vs. transplanted heart: [place] heart Associated angina: without angina Qualified Code(s): I25.10 - Atherosclerotic heart disease of [place] coronary artery without angina pectoris (4) HTN (hypertension) Qualifiers: Hypertension type: essential hypertension Qualified Code(s): I10 - Essential (primary) hypertension (6) GERD (gastroesophageal reflux disease) Qualifiers: Esophagitis presence: esophagitis presence not specified Qualified Code(s): K21.9 - Gastro-esophageal reflux disease without esophagitis
[2018-08-30] MEDS ORDERED: Warfarin perPT PO PRN (18:00)
[2018-08-30] MEDS ORDERED: *HR* Warfarin 3 MG TABLET PO ONE (18:00)
[2018-08-30] MEDS ORDERED: *HR* LORazepam 1 MG TABLET PO SCH (21:00)
[2018-08-31] MEDS: Carbidopa/Levodopa 25/250 TABLET PO SCH ×3 (00:31→11:25)
[2018-08-31 04:21] LABS: INR 2.2; Prothrombin Time 24.7 Seconds (9.4-12.1)
[2018-08-31 06:36] VITALS: BP 168/94
[2018-08-31] MEDS: *HR* LORazepam 1 MG TABLET PO SCH (07:42)
--- NOTE | 2018-08-31 10:56 | Cardiology Progress Note ---
Date of Encounter: 08/31/18 Time of Encounter: 10:31 Assessment and Plan (1) Near syncope Current Visit: Yes Status: Acute Presented with near syncope--dizziness, pale and diaphretic, short of breath, n/v. Reports the room was "spinning". Did not lose consciousness yesterday, but admits to 2 syncopal events in the past year. Known A-Fib, anticoagulated on Coumadin. Rhythm strips and telemetry reviewed. Multiple episodes of A-Fib RVR with abberancy. Overall rate controlled--AVG HR 79 past 12 hours. Orthostatic vitals negative. Atenolol and Cardura held on admission. Lopressor 25mg BID was started. TTE EF preserved, mild MR. No further cardiac testing warranted inpt. Cardiology signing off. Reconsult PRN. Will coordinate outpt follow-up in 2-3 weeks. (2) AF (atrial fibrillation) Current Visit: Yes Status: Chronic Known longstanding hx of A-Fib, presumably chronic. Was on Atenolol at home, held on admission. Lopressor 25mg BID was started--agree. Intermittent episodes of A-Fib RVR with aberrancy, but overall rate controlled. Anticoagulated on Coumadin, INR 2.2. Qualifiers: Atrial fibrillation type: chronic Qualified Code(s): I48.2 - Chronic atrial fibrillation (3) CAD (coronary artery disease) Current Visit: Yes Status: Chronic Reported hx of CAD with [place] in the remote past. Reports possible PTCA at that time, but not stenting. Denies chest pain. Troponin negative. TTE EF preserved. Statin, BB. Qualifiers: Coronary Disease-Associated Artery/Lesion type: [place] artery [place] vs. transplanted heart: [place] heart Associated angina: without angina Qualified Code(s): I25.10 - Atherosclerotic heart disease of [place] coronary artery without angina pectoris Discussion w patient/family: The assessment and plan as outlined above was discussed with the patient and/or family members who expressed understanding and agreement. All questions were answered. Thank you for involving us in the care of your patient. Please call with any questions. I will discuss all the above with Dr. Ferreira and make changes as necessary. Subjective Principal diagnosis: pre syncope Interval history: Denies recurrent symptoms overnight. TTE resulted--EF 60-65%, mildly dilated LA, mild MR. 12 hr tele AVG HR 79 A-Fib, intermittent RVR. Objective Vital Signs, Last 4 Hours Pulse Resp BP Pulse Ox 08/31/18 06:35 77 17 168/94 93 Vital Signs Temp Pulse Resp BP Pulse Ox 08/31/18 06:35 77 17 168/94 93 08/31/18 04:50 93 17 151/94 94 08/30/18 21:00 98.2 F 73 16 136/84 96 08/30/18 20:13 95 08/30/18 15:58 98.8 F 84 18 154/99 94 Intake and Output 08/30/18 08/31/18 08/31/18 23:59 07:59 15:59 Intake Total 120 / 120 240 / 240 Output Total 730 / 730 610 / 610 Balance -610 / -610 -610 / -610 240 / 240 Intake: Oral 120 / 120 240 / 240 Output: Urine 730 / 730 610 / 610 Other: Meal Dinner Breakfast Percent of Meal Consumed 75% 90% Weight 89 kg Patient Weight 08/31/18 23:59 Weight 89 kg General: Conversant, No Apparent Distress HEENT: Atraumatic, Normocephaly, Mucus Membranes Moist Neck: No JVD, Normal carotid pulses Cardiac: Other (irregularly irregular) Lungs: Normal Breath Sounds, No Wheeze, Rales, Rhonchi Neuro: Alert and responsive, No focal deficits noted Abdomen: Soft, Non-Tender Skin: No rashes noted on visualized skin Musculoskeletal: No Chest Wall Tenderness Extremities: No Clubbing, No Cyanosis, No Edema, Normal Pulses Results 08/29/18 13:53 08/29/18 13:53 Lab Results 08/31/18 03:34 INR 2.2 Impressions Echocardiogram 08/30/18 23:53 Impressions: LVEF 60-65%. Normal LV chamber size, wall thickness and systolic function. Normal right ventricular structure and function. Mildly dilated left atrium. Mild mitral regurgitation. Active Medications Carbidopa/Levodopa (Sinemet) 1 each PO Q6HR [facility] Stop: 02/28/19 18:01 Last Admin: 08/31/18 06:22 Dose: 1 each Levothyroxine Sodium (Synthroid) 125 mcg PO DAILY@0630 SHAUN Stop: 03/01/19 06:31 Last Admin: 08/31/18 06:22 Dose: 125 mcg Lorazepam (Ativan) 1 mg PO HS [facility] Stop: 02/28/19 21:01 Last Admin: 08/30/18 20:03 Dose: 1 mg Losartan Potassium (Cozaar) 100 mg PO DAILY SHAUN Stop: 03/01/19 09:01 Last Admin: 08/31/18 08:36 Dose: 100 mg Metoprolol Tartrate (Lopressor) 25 mg PO BID SHAUN Stop: 02/28/19 21:01 Last Admin: 08/31/18 08:36 Dose: 25 mg Naloxone HCl (Narcan) 0.4 mg IVP Q2MIN PRN PRN Reason: SEE COMMENTS Stop: 02/28/19 17:28 Omeprazole (Prilosec) 20 mg PO BIDAC [facility]; Protocol Stop: 03/01/19 07:31 Last Admin: 08/31/18 08:36 Dose: 20 mg Potassium Chloride (Potassium Chloride) 20 meq PO DAILY SHAUN Stop: 03/01/19 09:01 Last Admin: 08/31/18 08:36 Dose: 20 meq Simvastatin (Zocor) 40 mg PO HS [facility]; Protocol Stop: 02/28/19 21:01 Last Admin: 08/30/18 20:03 Dose: 40 mg Warfarin Sodium (Coumadin Perpt) 1 each PO DAILY@1800 PRN PRN Reason: SEE COMMENTS Stop: 03/01/19 18:01 - Imaging and Cardiology Echo: report reviewed - EKG Interpretation EKG results cardiology: other (12 hr tele AVG HR 79, A-Fib) - VTE Reasons for not Prescribing Prophylaxis: Not indicated-Anticoagulated or INR therapeutic Deep Vein Thrombosis/Pulmonary Embolism Present on Admission: No Consult Discharge Plan - Plan Referrals: Ezequiel Hoffman DO [Primary Care Provider] -
--- NOTE | 2018-08-31 11:49 | Discharge Summary ---
Orders not resulted at time of discharge: Pending orders 09/01/18 04:00 INR/PT [Prothrombin Time INR] [COAG] AM 0400 Date of Encounter: 08/31/18 Time of Encounter: 11:00 - Discharge Diagnosis (1) Near syncope Priority: Primary Status: Acute (2) AF (atrial fibrillation) Priority: Primary Status: Chronic Qualifiers: Atrial fibrillation type: chronic Qualified Code(s): I48.2 - Chronic atrial fibrillation (3) CAD (coronary artery disease) Priority: Secondary Status: Chronic Qualifiers: Coronary Disease-Associated Artery/Lesion type: [place] artery [place] vs. transplanted heart: [place] heart Associated angina: without angina Qualified Code(s): I25.10 - Atherosclerotic heart disease of [place] coronary artery wit hout angina pectoris (4) HTN (hypertension) Priority: Secondary Status: Chronic Qualifiers: Hypertension type: essential hypertension Qualified Code(s): I10 - Essential (primary) hypertension (5) Hypothyroidism (acquired) Priority: Secondary Status: Chronic (6) GERD (gastroesophageal reflux disease) Priority: Secondary Status: Chronic Qualifiers: Esophagitis presence: esophagitis presence not specified Qualified Code(s): K21.9 - Gastro-esophageal reflux disease without esophagitis Hospital course: HOSPITAL COURSE: This is an 83-year-old man. We admitted him after he experienced a near syncope. It happened shortly after shaving,. He suddenly developed a feeling of vertigo with nausea and vomiting. He became weak. His skin became pale and clammy. All his symptoms disappeared about 30-to 40 minutes later, when evaluated by EMS. They did a repeat later during this hospitalization. The patient has underlying atrial fibrillation. We found him to have short lasting episodes of RVR with aberrancy. They were initially interpreted as runs of nonsustained V. tach. His heart rate was under control after admitting him to the telemetry floor. Cardiology was consulted. The patient had echocardiogram. It showed normal findings. CONDITION AT DISCHARGE: The patient feels good. He does not have any dyspnea at resting and walking. Denies chest pain. Denies abdominal pain, nausea and vomiting. He has normal urination. Skin: Free of rash and discoloration. Respiratory: Normal breath sounds with no crackles and wheezes bilaterally. CV: Heart is regular with no gallop or murmur. GI: Abdomen is flat and soft with no palpable mass or visceromegaly. Neuro exam: There is no focal deficits. Normal speech, swallowing and gait. SEE DISCHARGE ORDERS/MEDICATIONS.. Discharge discussed with: patient, family, nurse - Time Spent with Patient Total time spent providing and/or coordinating discharge services: Greater than 30 minutes (40 minutes..) - Discharge Medications Prescriptions: Meclizine HCl [Verticalm] 25 mg PO Q6H PRN #10 tablet PRN Reason: Vertigo Metoprolol [Lopressor] 25 mg PO BID #60 tablet Home Medications: LORazepam [Ativan] 1 mg PO BID 11/01/17 [History] Omeprazole [PriLOSEC] 20 mg PO BIDAC 11/01/17 [History] Potassium Chloride [K-Tab ER] 20 meq PO DAILY 11/01/17 [History] Simvastatin [Zocor] 40 mg PO HS 11/01/17 [History] Carbidopa/Levodopa [Carbidopa-Levodopa 25-250 Tab] 1 tab PO Q6H 08/29/18 [History] Doxazosin Mesylate [Cardura] 8 mg PO HS 08/29/18 [History] Levothyroxine [Synthroid] 125 mcg PO DAILY 08/29/18 [History] Losartan Potassium [Cozaar] 100 mg PO DAILY 08/29/18 [History] Warfarin [Coumadin] 3 mg PO AD 08/29/18 [History] Meclizine HCl [Verticalm] 25 mg PO Q6H PRN #10 tablet 08/31/18 [Rx] Metoprolol [Lopressor] 25 mg PO BID #60 tablet 08/31/18 [Rx] Allergies/Adverse Reactions: Allergy/AdvReac Type Severity Reaction Status Date / Time No Known Allergies Allergy Verified 11/01/17 11:23 Date of admission: 08/29/18 17:52 Primary care physician: Ezequiel Hoffman DO Consults: 08/29/18 16:19 Consult to Cardiology [CONS] Stat Comment: Consulting Provider: Cardiology Jeanie Reason for Consult: afib, non sustained v-tach, near syncope Call Completed: Yes Discharging clinician: Kody Valenzuela Anticipated date of discharge: 08/31/18 - Constitutional Vitals: Temp Pulse Resp BP Pulse Ox 98.2 F 77 17 168/94 93 08/30/18 21:00 08/31/18 06:35 10/25/18 06:35 08/31/18 06:35 08/31/18 06:35 General appearance: Present: A&O X 3, no acute distress, answers questions appropriately Exam: xx - Patient Status Disposition: Home, Self-Care Condition: Good - Discharge Instructions Instructions: Metoprolol (By mouth), Meclizine (By mouth), Atrial Fibrillation (DC), Syncope (DC), Hypothyroidism (DC), Chronic Hypertension (DC) Follow Up With: Ezequiel Hoffman DO [Primary Care Provider] - 09/06/18 11:00 am Additional Instructions: PRO TIME TESTING -- ROUTINE.. - Diet and Activity Activity: resume usual activities as tolerated Diet: low fat, low cholesterol - VTE Reasons for not Prescribing Prophylaxis: Not indicated-Anticoagulated or INR therapeutic Deep Vein Thrombosis/Pulmonary Embolism Present on Admission: No
== END 2018-08-31 12:48 | disposition home or self-care (01) ==
LOC: SUATTDRO → EMEROOARM 13:44 → 2NENU 13:44 → SUATTDRO 17:52 → 2NENU 20:52
PROVIDERS: ADMIT Internal Medicine Nephrology; ATTEND Internal Medicine

== ENCOUNTER 2020-12-04 11:26 | Inpatient (IN) ==
[2020-12-04 13:05] LABS: Basophils % 0.2 %; Hematocrit 39.2 % (37.5-50.1); Mean Corpuscular Volume 101.8 fL (83.0-100.0); Mean Platelet Volume 11.3 fL (9.4-12.4); Red Blood Count 3.85 M/mcL (4.19-5.50); Red Cell Distribution Width 13.2 % (11.5-14.5); Segmented Neutrophils % 74.2 %
[2020-12-04 13:07] LABS: Eosinophils # 0.1 K/mcL (0.0-0.6); Eosinophils % 0.7 %; Hemoglobin 12.5 g/dL (12.9-16.9); Immature Granulocytes % 0.3 % (0-4); Immature Platelets 8.5 % (1.1-6.1); Lymphocytes # 0.6 K/mcL (0.6-4.6); Lymphocytes % 6.8 %; Mean Corpuscular HGB Conc 31.9 g/dL (31.6-35.5); Mean Corpuscular Hemoglobin 32.5 pg (28.0-33.3); Monocytes # 1.7 K/mcL (0.0-1.3); Monocytes % 17.8 %; White Blood Count 9.4 K/mcL (4.3-11.1)
[2020-12-04 13:12] LABS: BUN/Creatinine Ratio 25 (6-26); Blood Urea Nitrogen 25 mg/dL (8-23); Calcium 9.1 mg/dL (8.6-10.3); Carbon Dioxide 26 mEq/L (23-29); Chloride 105 mEq/L (98-107); Glucose 115 mg/dL (70-105); Osmolality,Calculated 293 (280-300); Sodium 139 mEq/L (136-145); eGFR For African Americans > 60 (> 60); eGFR For Non-African Americans > 60 (> 60)
[2020-12-04 13:19] LABS: Platelet Count 94 K/mcL (140-400)
[2020-12-04 13:25] LABS: INR 1.7; Prothrombin Time 18.9 Seconds (9.4-12.1)
[2020-12-04] MEDS ORDERED: Mag Hydrox/Al Hydrox/Simeth 30 ML UDC PO PRN (13:42)
[2020-12-04] MEDS ORDERED: MOM Conc 10 ML UD.LIQ PO PRN (13:42)
[2020-12-04] MEDS ORDERED: Ondansetron 4 MG/2 ML VIAL IVP PRN (13:42)
[2020-12-04] MEDS ORDERED: Naloxone 0.4 MG/ML INJ IVP PRN (13:42)
[2020-12-04] MEDS ORDERED: Acetaminophen 325 MG TABLET PO PRN (13:42)
[2020-12-04] MEDS: Carbidopa/Levodopa 25/250 TABLET PO SCH ×2 (16:22→21:03)
[2020-12-04 20:39] LABS: Adenovirus Not Detected (Not Detect); Bordetella Pertussis Not Detected (Not Detect); Chlamydophila pneumoniae Not Detected (Not Detect); Coronavirus 229E Not Detected (Not Detect); Coronavirus HKU1 Not Detected (Not Detect); Coronavirus NL63 Not Detected (Not Detect); Coronavirus OC43 Not Detected (Not Detect); Human Metapneumovirus Not Detected (Not Detect); Human Rhinovirus/Enterovirus Not Detected (Not Detect); Influenza A Subtype 2009 H1 Not Detected (Not Detect); Influenza B Not Detected (Not Detect); Mycoplasma pneumoniae Not Detected (Not Detect); Parainfluenza Virus 1 Not Detected (Not Detect); Parainfluenza Virus 2 Not Detected (Not Detect); Parainfluenza Virus 3 Not Detected (Not Detect); Parainfluenza Virus 4 Not Detected (Not Detect); Respiratory Syncytial Virus Not Detected (Not Detect); SARS-CoV-2 Not Detected (Not Detect)
[2020-12-05 04:24] LABS: Mean Corpuscular Hemoglobin 32.5 pg (28.0-33.3)
[2020-12-05 04:26] LABS: Hematocrit 37.1 % (37.5-50.1); Immature Platelets 7.1 % (1.1-6.1); Mean Corpuscular HGB Conc 32.3 g/dL (31.6-35.5); Mean Corpuscular Volume 100.5 fL (83.0-100.0); Mean Platelet Volume 11.2 fL (9.4-12.4); Red Blood Count 3.69 M/mcL (4.19-5.50); Red Cell Distribution Width 13.3 % (11.5-14.5); White Blood Count 7.3 K/mcL (4.3-11.1)
[2020-12-05 04:32] LABS: INR 1.6; Prothrombin Time 18.4 Seconds (9.4-12.1)
[2020-12-05 04:43] LABS: BUN/Creatinine Ratio 23 (6-26); Blood Urea Nitrogen 22 mg/dL (8-23); Calcium 8.9 mg/dL (8.6-10.3); Carbon Dioxide 27 mEq/L (23-29); Chloride 103 mEq/L (98-107); Glucose 100 mg/dL (70-105); Magnesium 1.6 mg/dL (1.6-2.6); Osmolality,Calculated 289 (280-300); Potassium 3.9 mEq/L (3.5-5.1); Sodium 138 mEq/L (136-145); eGFR For African Americans > 60 (> 60); eGFR For Non-African Americans > 60 (> 60)
[2020-12-05] MEDS ORDERED: Povidone-Iodine 45 ML, Sodium Chloride IRRigation 1,000 ML IR ONE (06:00)
[2020-12-05] MEDS: Carbidopa/Levodopa 25/250 TABLET PO SCH ×4 (07:55→21:15)
[2020-12-05] MEDS ORDERED: Lidocaine HCL 4 ML Topical Solution (Laryng-O-Jet Kit Sterile Pak) TP ONE (14:47)
[2020-12-05] MEDS ORDERED: Ondansetron 4 MG/2 ML VIAL ONE (14:56)
[2020-12-05] MEDS ORDERED: Lidocaine -MPF 2% 2 ML VIAL ONE (14:56)
[2020-12-05] MEDS ORDERED: *HR* Rocuronium Bromide 50 MG/5 ML VIAL ONE (14:56)
[2020-12-05] MEDS ORDERED: *HR* FentaNYL (PF) 100 MCG/2 ML VIAL ONE (14:57)
[2020-12-05] MEDS ORDERED: Ethanol\\Acetic Acid\\Na Ace\\Ben 1,000 ML IRRIG.SOLN IR ONE (15:01)
[2020-12-05] MEDS ORDERED: Vancomycin 1,000 MG VIAL ONE (15:01)
[2020-12-05] MEDS ORDERED: Tranexamic Acid 1,000 MG/10 ML VIAL ONE (15:35)
[2020-12-05] MEDS ORDERED: Acetaminophen IV 1,000 MG/100 ML BAG IVPB ONE (15:39)
[2020-12-05] MEDS ORDERED: Albumin Human 5% 12.5 GM/250 ML IV.SOLN ONE (16:05)
[2020-12-05] MEDS ORDERED: Sugammadex Sodium 200 MG/2 ML VIAL IV ONE (16:41)
[2020-12-05] MEDS ORDERED: Potassium Chloride 20 MEQ, Lidocaine 1% 2 ML in 0.9 % Sodium Chloride 250 ML IVPB ONE (17:58)
[2020-12-05] MEDS ORDERED: 0.9 % Sodium Chloride 500 ML IVC ONE (18:01)
[2020-12-05] MEDS ORDERED: Perflutren Lipid Microsphere 1.3 ML in 0.9 % Sodium Chloride 8.7 ML IVP PRN ×2 (18:01→18:06)
[2020-12-05] MEDS ORDERED: 0.9 % Sodium Chloride 1,000 ML ONE (18:02)
[2020-12-05] MEDS: PrednisoLONE Acetate 1% Opth 5 ML BOTTLE LEFT EYE SCH ×3 (20:00→23:07)
[2020-12-05] MEDS: Latanoprost 2.5 ML BOTTLE LEFT EYE SCH (21:00)
[2020-12-06] MEDS: PrednisoLONE Acetate 1% Opth 5 ML BOTTLE LEFT EYE SCH ×12 (05:19→23:35)
[2020-12-06 05:30] LABS: BUN/Creatinine Ratio 24 (6-26); Blood Urea Nitrogen 21 mg/dL (8-23); Calcium 8.7 mg/dL (8.6-10.3); Carbon Dioxide 26 mEq/L (23-29); Chloride 104 mEq/L (98-107); Glucose 119 mg/dL (70-105); Osmolality,Calculated 286 (280-300); Potassium 4.4 mEq/L (3.5-5.1); Sodium 136 mEq/L (136-145); eGFR For African Americans > 60 (> 60); eGFR For Non-African Americans > 60 (> 60)
[2020-12-06] MEDS: Carbidopa/Levodopa 25/250 TABLET PO SCH ×3 (07:42→17:16)
[2020-12-06] MEDS: *HR* LORazepam 1 MG TABLET PO SCH (07:42)
[2020-12-06] MEDS: Aspirin Enteric Coated 81 MG Tablet PO SCH (07:43)
[2020-12-06] MEDS ORDERED: *HR* Enoxaparin 40 MG/0.4 ML SYRINGE SQ ONE (17:17)
[2020-12-06] MEDS: Latanoprost 2.5 ML BOTTLE LEFT EYE SCH (20:42)
[2020-12-07] MEDS: PrednisoLONE Acetate 1% Opth 5 ML BOTTLE LEFT EYE SCH ×13 (01:53→23:11)
[2020-12-07 02:45] LABS: Hematocrit 34.9 % (37.5-50.1); Mean Corpuscular Volume 100.9 fL (83.0-100.0); Red Blood Count 3.46 M/mcL (4.19-5.50)
[2020-12-07 02:46] LABS: Hemoglobin 11.1 g/dL (12.9-16.9); Immature Platelets 10.2 % (1.1-6.1); Mean Corpuscular HGB Conc 31.8 g/dL (31.6-35.5); Mean Corpuscular Hemoglobin 32.1 pg (28.0-33.3); Mean Platelet Volume 11.6 fL (9.4-12.4); Red Cell Distribution Width 13.3 % (11.5-14.5)
[2020-12-07 03:09] LABS: BUN/Creatinine Ratio 30 (6-26); Blood Urea Nitrogen 34 mg/dL (8-23); Calcium 8.4 mg/dL (8.6-10.3); Carbon Dioxide 26 mEq/L (23-29); Chloride 103 mEq/L (98-107); Glucose 100 mg/dL (70-105); Magnesium 1.9 mg/dL (1.6-2.6); Osmolality,Calculated 290 (280-300); Potassium 4.4 mEq/L (3.5-5.1); Sodium 136 mEq/L (136-145); eGFR For African Americans > 60 (> 60); eGFR For Non-African Americans > 60 (> 60)
[2020-12-07] MEDS: *HR* Enoxaparin 40 MG/0.4 ML SYRINGE SQ SCH (07:15)
[2020-12-07] MEDS: Carbidopa/Levodopa 25/250 TABLET PO SCH ×4 (08:06→20:14)
[2020-12-07] MEDS: *HR* LORazepam 1 MG TABLET PO SCH (08:06)
[2020-12-07] MEDS: Aspirin Enteric Coated 81 MG Tablet PO SCH (08:06)
[2020-12-07] MEDS: Latanoprost 2.5 ML BOTTLE LEFT EYE SCH (20:15)
[2020-12-08] MEDS: PrednisoLONE Acetate 1% Opth 5 ML BOTTLE LEFT EYE SCH ×8 (02:30→23:33)
[2020-12-08 03:23] LABS: Hematocrit 35.9 % (37.5-50.1); Hemoglobin 11.4 g/dL (12.9-16.9); Immature Platelets 8.4 % (1.1-6.1); Mean Corpuscular HGB Conc 31.8 g/dL (31.6-35.5); Mean Corpuscular Hemoglobin 31.5 pg (28.0-33.3); Mean Corpuscular Volume 99.2 fL (83.0-100.0); Mean Platelet Volume 11.3 fL (9.4-12.4); Red Blood Count 3.62 M/mcL (4.19-5.50); Red Cell Distribution Width 13.1 % (11.5-14.5); White Blood Count 6.3 K/mcL (4.3-11.1)
[2020-12-08 03:39] LABS: BUN/Creatinine Ratio 33 (6-26); Blood Urea Nitrogen 32 mg/dL (8-23); Calcium 8.5 mg/dL (8.6-10.3); Carbon Dioxide 26 mEq/L (23-29); Chloride 102 mEq/L (98-107); Glucose 95 mg/dL (70-105); Magnesium 1.9 mg/dL (1.6-2.6); Osmolality,Calculated 287 (280-300); Potassium 4.4 mEq/L (3.5-5.1); Sodium 135 mEq/L (136-145); eGFR For African Americans > 60 (> 60); eGFR For Non-African Americans > 60 (> 60)
[2020-12-08] MEDS: *HR* Enoxaparin 40 MG/0.4 ML SYRINGE SQ SCH (05:26)
[2020-12-08] MEDS ORDERED: Vancomycin 1,000 MG VIAL ONE (07:48)
[2020-12-08] MEDS ORDERED: Ethanol\\Acetic Acid\\Na Ace\\Ben 1,000 ML IRRIG.SOLN IR ONE (07:48)
[2020-12-08] MEDS ORDERED: *HR* Propofol 200 MG/20 ML VIAL IVP ONE (07:54)
[2020-12-08] MEDS ORDERED: *HR* Succinylcholine 200 MG/10 ML VIAL IVP ONE (07:54)
[2020-12-08] MEDS ORDERED: *HR* Rocuronium Bromide 50 MG/5 ML VIAL ONE (07:54)
[2020-12-08] MEDS ORDERED: *HR* FentaNYL (PF) 100 MCG/2 ML VIAL ONE (07:54)
[2020-12-08] MEDS ORDERED: Ondansetron 4 MG/2 ML VIAL ONE (07:54)
[2020-12-08] MEDS: *HR* LORazepam 1 MG TABLET PO SCH (07:59)
[2020-12-08] MEDS ORDERED: ceFAZolin 2,000 MG in Water for inj. (sterile) 20 ML IVP ONE (08:00)
[2020-12-08] MEDS ORDERED: Povidone-Iodine 45 ML, Sodium Chloride IRRigation 1,000 ML IR ONE (08:15)
[2020-12-08] MEDS ORDERED: *HR* Vasopressin 20 UNIT/ML VIAL ONE (08:18)
[2020-12-08] MEDS ORDERED: Acetaminophen IV 1,000 MG/100 ML BAG IVPB ONE ×2 (08:28→09:05)
[2020-12-08] MEDS ORDERED: *HR* FentaNYL (PF) 100 MCG/2 ML VIAL IVP PRN (08:30)
[2020-12-08] MEDS ORDERED: Ondansetron 4 MG/2 ML VIAL IVP PRN ×3 (08:30→10:46)
[2020-12-08] MEDS ORDERED: Sugammadex Sodium 200 MG/2 ML VIAL IV ONE (09:12)
[2020-12-08 10:37] LABS: Hematocrit 32.6 % (37.5-50.1); Hemoglobin 10.6 g/dL (12.9-16.9)
[2020-12-08] MEDS ORDERED: Sennosides 8.6 MG TABLET PO PRN (10:46)
[2020-12-08] MEDS ORDERED: Mag Hydrox/Al Hydrox/Simeth 30 ML UDC PO PRN (10:46)
[2020-12-08] MEDS ORDERED: MOM Conc 10 ML UD.LIQ PO PRN ×2 (10:46)
[2020-12-08] MEDS ORDERED: Naloxone 0.4 MG/ML INJ IVP PRN ×2 (10:46)
[2020-12-08] MEDS ORDERED: Acetaminophen 325 MG TABLET PO PRN (10:46)
[2020-12-08] MEDS ORDERED: *HR* Promethazine 25 MG/ML VIAL IM PRN (10:46)
[2020-12-08] MEDS ORDERED: *HR* Dextrose 50 % in Water (Vial) 50 ML VIAL ONE (15:12)
[2020-12-08 15:23] LABS: ABG Base Excess -2 mEq/L (-2 to 3); ABG HCO3 22 mEq/L (21-27); ABG Oxygen Saturation 94 % (95-98); ABG PCO2 35 mmHg (35-45); ABG PO2 70 mmHg (85-104); ABG TCO2 23 mEq/L (20-26)
[2020-12-08] MEDS: Carbidopa/Levodopa 25/250 TABLET PO SCH ×3 (15:57→20:03)
[2020-12-08] MEDS: Multivit/Ca/Min/Fe/FA 1 TAB TABLET PO SCH (15:57)
[2020-12-08] MEDS: Apixaban 5 MG TABLET PO SCH ×2 (15:57→20:03)
[2020-12-08] MEDS: Ascorbic Acid 500 MG TABLET PO SCH ×2 (15:57→16:36)
[2020-12-08] MEDS ORDERED: *HR* Magnesium Sulfate 2 GM/50 ML PIGGYBACK IVPB ONE (16:19)
[2020-12-08] MEDS: Ringers Solution, Lactated 1,000 ML IVC SCH (16:37)
[2020-12-08] MEDS: CeFAZolin 2 GM/120 ML BAG IVPB SCH ×2 (16:41→23:32)
[2020-12-08 17:25] LABS: Mean Platelet Volume 11.5 fL (9.4-12.4); Red Cell Distribution Width 12.7 % (11.5-14.5)
[2020-12-08 17:26] LABS: Hematocrit 34.2 % (37.5-50.1); Hemoglobin 10.8 g/dL (12.9-16.9); Immature Platelets 8.4 % (1.1-6.1); Mean Corpuscular HGB Conc 31.6 g/dL (31.6-35.5); Mean Corpuscular Hemoglobin 32.1 pg (28.0-33.3); Mean Corpuscular Volume 101.8 fL (83.0-100.0); Red Blood Count 3.36 M/mcL (4.19-5.50); White Blood Count 7.4 K/mcL (4.3-11.1)
[2020-12-08 17:46] LABS: BUN/Creatinine Ratio 26 (6-26); Blood Urea Nitrogen 29 mg/dL (8-23); Calcium 8.6 mg/dL (8.6-10.3); Carbon Dioxide 22 mEq/L (23-29); Chloride 102 mEq/L (98-107); Glucose 165 mg/dL (70-105); Osmolality,Calculated 290 (280-300); Potassium 4.8 mEq/L (3.5-5.1); Sodium 135 mEq/L (136-145); Troponin I < 0.03 ng/mL (< 0.04); eGFR For African Americans > 60 (> 60); eGFR For Non-African Americans > 60 (> 60)
[2020-12-08] MEDS: Latanoprost 2.5 ML BOTTLE LEFT EYE SCH (20:04)
[2020-12-08] MEDS ORDERED: 0.9 % Sodium Chloride 500 ML IVC ONE (20:23)
[2020-12-08] MEDS ORDERED: 0.9 % Sodium Chloride 1,000 ML ONE (20:28)
[2020-12-09 01:37] LABS: Basophils % 0.2 %; Mean Platelet Volume 11.2 fL (9.4-12.4)
[2020-12-09 01:39] LABS: Eosinophils % 0.2 %; Hemoglobin 9.8 g/dL (12.9-16.9); Immature Granulocytes % 0.5 % (0-4); Immature Platelets 6.7 % (1.1-6.1); Lymphocytes # 0.4 K/mcL (0.6-4.6); Lymphocytes % 6.2 %; Mean Corpuscular HGB Conc 32.7 g/dL (31.6-35.5); Mean Corpuscular Hemoglobin 32.7 pg (28.0-33.3); Monocytes # 1.2 K/mcL (0.0-1.3); Monocytes % 18.5 %; Neutrophils # 4.7 K/mcL (1.6-8.9); Platelet Count 116 K/mcL (140-400); Red Cell Distribution Width 12.7 % (11.5-14.5); Segmented Neutrophils % 74.4 %; White Blood Count 6.3 K/mcL (4.3-11.1)
[2020-12-09 01:57] LABS: BUN/Creatinine Ratio 31 (6-26); Blood Urea Nitrogen 32 mg/dL (8-23); Calcium 8.2 mg/dL (8.6-10.3); Carbon Dioxide 25 mEq/L (23-29); Chloride 102 mEq/L (98-107); Glucose 122 mg/dL (70-105); Osmolality,Calculated 288 (280-300); Potassium 4.6 mEq/L (3.5-5.1); Sodium 135 mEq/L (136-145); eGFR For African Americans > 60 (> 60); eGFR For Non-African Americans > 60 (> 60)
[2020-12-09] MEDS: Ringers Solution, Lactated 1,000 ML IVC SCH (05:15)
[2020-12-09] MEDS: PrednisoLONE Acetate 1% Opth 5 ML BOTTLE LEFT EYE SCH ×9 (05:16→23:41)
[2020-12-09] MEDS: Multivit/Ca/Min/Fe/FA 1 TAB TABLET PO SCH (08:08)
[2020-12-09] MEDS: Carbidopa/Levodopa 25/250 TABLET PO SCH ×4 (08:08→23:41)
[2020-12-09] MEDS: Aspirin Enteric Coated 81 MG Tablet PO SCH (08:09)
[2020-12-09] MEDS: Ascorbic Acid 500 MG TABLET PO SCH ×2 (08:09→17:08)
[2020-12-09] MEDS: *HR* LORazepam 1 MG TABLET PO SCH (08:09)
[2020-12-09] MEDS: Apixaban 5 MG TABLET PO SCH ×2 (11:38→23:40)
[2020-12-09] MEDS ORDERED: *HR* Metoprolol 5 MG/5 ML VIAL IVP PRN (18:57)
[2020-12-09] MEDS: Latanoprost 2.5 ML BOTTLE LEFT EYE SCH (23:39)
[2020-12-09] MEDS: traZODone 50 MG TABLET PO SCH (23:40)
[2020-12-10 01:07] LABS: Basophils % 0.1 %; Eosinophils # 0.1 K/mcL (0.0-0.6); Eosinophils % 1.1 %; Hematocrit 26.5 % (37.5-50.1); Hemoglobin 8.9 g/dL (12.9-16.9); Immature Granulocytes % 0.5 % (0-4); Immature Platelets 5.3 % (1.1-6.1); Lymphocytes # 0.7 K/mcL (0.6-4.6); Lymphocytes % 9.1 %; Mean Corpuscular HGB Conc 33.6 g/dL (31.6-35.5); Mean Corpuscular Hemoglobin 33.2 pg (28.0-33.3); Mean Corpuscular Volume 98.9 fL (83.0-100.0); Mean Platelet Volume 11.1 fL (9.4-12.4); Monocytes # 1.7 K/mcL (0.0-1.3); Monocytes % 21.5 %; Platelet Count 122 K/mcL (140-400); Red Blood Count 2.68 M/mcL (4.19-5.50); Red Cell Distribution Width 12.8 % (11.5-14.5); Segmented Neutrophils % 67.7 %; White Blood Count 7.9 K/mcL (4.3-11.1)
[2020-12-10 01:12] LABS: Neutrophils # 5.4 K/mcL (1.6-8.9)
[2020-12-10 01:20] LABS: BUN/Creatinine Ratio 33 (6-26); Blood Urea Nitrogen 29 mg/dL (8-23); Calcium 8.2 mg/dL (8.6-10.3); Carbon Dioxide 26 mEq/L (23-29); Chloride 102 mEq/L (98-107); Glucose 105 mg/dL (70-105); Osmolality,Calculated 286 (280-300); Potassium 4.3 mEq/L (3.5-5.1); Sodium 135 mEq/L (136-145); eGFR For African Americans > 60 (> 60); eGFR For Non-African Americans > 60 (> 60)
[2020-12-10 01:36] LABS: Anisocytosis 1+ (Not Present); Hypochromasia Present (Not Present); Platelet Estimate Slight Decrease (Normal)
[2020-12-10] MEDS: PrednisoLONE Acetate 1% Opth 5 ML BOTTLE LEFT EYE SCH ×4 (06:14→22:37)
[2020-12-10] MEDS: *HR* LORazepam 1 MG TABLET PO SCH (08:23)
[2020-12-10] MEDS: Multivit/Ca/Min/Fe/FA 1 TAB TABLET PO SCH (08:23)
[2020-12-10] MEDS: Carbidopa/Levodopa 25/250 TABLET PO SCH ×4 (08:23→22:45)
[2020-12-10] MEDS: Aspirin Enteric Coated 81 MG Tablet PO SCH (08:23)
[2020-12-10] MEDS: Ascorbic Acid 500 MG TABLET PO SCH ×2 (08:23→16:24)
[2020-12-10] MEDS: Apixaban 5 MG TABLET PO SCH ×2 (08:24→22:44)
[2020-12-10] MEDS ORDERED: 0.9 % Sodium Chloride 1,000 ML ONE ×2 (11:30)
[2020-12-10] MEDS ORDERED: flumazeniL 0.5 MG/5 ML VIAL IVP ONE (13:48)
[2020-12-10 15:36] LABS: Basophils % 0.3 %; Eosinophils % 1.9 %; Hemoglobin 8.3 g/dL (12.9-16.9); Lymphocytes % 6.1 %; Segmented Neutrophils % 67.8 %
[2020-12-10 15:38] LABS: Eosinophils # 0.2 K/mcL (0.0-0.6); Hematocrit 26.3 % (37.5-50.1); Immature Granulocytes % 0.8 % (0-4); Immature Platelets 7.9 % (1.1-6.1); Lymphocytes # 0.5 K/mcL (0.6-4.6); Mean Corpuscular HGB Conc 31.6 g/dL (31.6-35.5); Mean Corpuscular Hemoglobin 32.2 pg (28.0-33.3); Mean Corpuscular Volume 101.9 fL (83.0-100.0); Mean Platelet Volume 11.7 fL (9.4-12.4); Monocytes # 1.8 K/mcL (0.0-1.3); Monocytes % 23.1 %; Neutrophils # 5.4 K/mcL (1.6-8.9); Platelet Count 123 K/mcL (140-400); Red Blood Count 2.58 M/mcL (4.19-5.50); Red Cell Distribution Width 13.2 % (11.5-14.5); White Blood Count 7.9 K/mcL (4.3-11.1)
[2020-12-10 15:49] LABS: Alanine Aminotransferase 7 Units/L (7-52); Albumin/Globulin Ratio 1.4 (1.1-2.2); Alkaline Phosphatase 44 Units/L (34-104); Aspartate Amino Transferase 23 Units/L (13-39); BUN/Creatinine Ratio 29 (6-26); Bilirubin,Total 0.6 mg/dL (0.3-1.0); Blood Urea Nitrogen 32 mg/dL (8-23); Calcium 8.1 mg/dL (8.6-10.3); Carbon Dioxide 28 mEq/L (23-29); Chloride 105 mEq/L (98-107); Globulin 2.2 g/dL (2.4-3.5); Glucose 102 mg/dL (70-105); Osmolality,Calculated 291 (280-300); Potassium 4.2 mEq/L (3.5-5.1); Sodium 137 mEq/L (136-145); Total Protein 5.2 g/dL (6.4-8.9); eGFR For African Americans > 60 (> 60); eGFR For Non-African Americans > 60 (> 60)
[2020-12-10] MEDS ORDERED: Ringers Solution, Lactated 1,000 ML IVC SCH (19:00)
[2020-12-10] MEDS: QUEtiapine Fumarate 25 MG TABLET PO SCH (22:45)
[2020-12-10] MEDS: traZODone 50 MG TABLET PO SCH (22:45)
[2020-12-11] MEDS: Latanoprost 2.5 ML BOTTLE LEFT EYE SCH ×2 (00:01→19:46)
[2020-12-11 00:13] LABS: Bilirubin,Urine Negative (Negative); Blood,Urine Moderate (Negative); Clarity,Urine Clear (Clear); Color,Urine Light-Yellow (Yellow); Glucose,Urine (UA) Normal (Normal); Ketones,Urine Trace mg/dL (Negative); Leukocyte Esterase,Urine Moderate (Negative); Mucus,Urine Moderate per lpf (None-Few); Nitrite,Urine Negative (Negative); Protein,Urine Trace mg/dL (Neg-Trace); RBC,Urine 30-50 per hpf (0-3); Specific Gravity,Urine 1.021 (1.010-1.025); Squamous Epithelial Cell,Urine Few per hpf (None-Few); Urobilinogen,Urine Normal (Normal); WBC,Urine 15-30 per hpf (0-3)
[2020-12-11] MEDS: PrednisoLONE Acetate 1% Opth 5 ML BOTTLE LEFT EYE SCH ×5 (00:21→23:30)
[2020-12-11 00:37] LABS: Basophils % 0.1 %
[2020-12-11 00:39] LABS: Eosinophils # 0.2 K/mcL (0.0-0.6); Eosinophils % 2.5 %; Hematocrit 24.5 % (37.5-50.1); Hemoglobin 7.9 g/dL (12.9-16.9); Immature Granulocytes % 0.6 % (0-4); Lymphocytes # 0.9 K/mcL (0.6-4.6); Lymphocytes % 10.9 %; Mean Corpuscular HGB Conc 32.2 g/dL (31.6-35.5); Mean Corpuscular Hemoglobin 32.4 pg (28.0-33.3); Mean Corpuscular Volume 100.4 fL (83.0-100.0); Mean Platelet Volume 10.9 fL (9.4-12.4); Monocytes # 1.6 K/mcL (0.0-1.3); Monocytes % 19.8 %; Neutrophils # 5.4 K/mcL (1.6-8.9); Platelet Count 130 K/mcL (140-400); Red Blood Count 2.44 M/mcL (4.19-5.50); Red Cell Distribution Width 13.1 % (11.5-14.5); Segmented Neutrophils % 66.1 %; White Blood Count 8.1 K/mcL (4.3-11.1)
[2020-12-11 00:58] LABS: BUN/Creatinine Ratio 33 (6-26); Blood Urea Nitrogen 29 mg/dL (8-23); Carbon Dioxide 27 mEq/L (23-29); Chloride 103 mEq/L (98-107); Glucose 94 mg/dL (70-105); Iron < 10 mcg/dL (65-175); Magnesium 1.8 mg/dL (1.6-2.6); Osmolality,Calculated 286 (280-300); Phosphorous 2.6 mg/dL (2.7-4.5); Potassium 4.3 mEq/L (3.5-5.1); Sodium 135 mEq/L (136-145); Transferrin 130 mg/dL (203-362); eGFR For African Americans > 60 (> 60); eGFR For Non-African Americans > 60 (> 60)
[2020-12-11] MEDS: Ascorbic Acid 500 MG TABLET PO SCH ×2 (08:53→17:29)
[2020-12-11] MEDS: Cefdinir 300 MG CAPSULE PO SCH ×2 (08:53→19:42)
[2020-12-11] MEDS: Aspirin Enteric Coated 81 MG Tablet PO SCH (08:53)
[2020-12-11] MEDS: Apixaban 5 MG TABLET PO SCH ×2 (08:53→19:43)
[2020-12-11] MEDS: Carbidopa/Levodopa 25/250 TABLET PO SCH ×4 (08:54→19:44)
[2020-12-11] MEDS: Multivit/Ca/Min/Fe/FA 1 TAB TABLET PO SCH (08:54)
[2020-12-11] MEDS: QUEtiapine Fumarate 25 MG TABLET PO SCH (19:42)
[2020-12-11] MEDS: traZODone 50 MG TABLET PO SCH (19:44)
[2020-12-12 01:01] LABS: Hematocrit 24.8 % (37.5-50.1)
[2020-12-12 01:20] LABS: BUN/Creatinine Ratio 30 (6-26); Blood Urea Nitrogen 26 mg/dL (8-23); Calcium 8.3 mg/dL (8.6-10.3); Carbon Dioxide 28 mEq/L (23-29); Chloride 102 mEq/L (98-107); Glucose 101 mg/dL (70-105); Osmolality,Calculated 285 (280-300); Potassium 4.4 mEq/L (3.5-5.1); Sodium 135 mEq/L (136-145); eGFR For African Americans > 60 (> 60); eGFR For Non-African Americans > 60 (> 60)
[2020-12-12] MEDS: PrednisoLONE Acetate 1% Opth 5 ML BOTTLE LEFT EYE SCH ×3 (07:00→18:33)
[2020-12-12] MEDS: Cefdinir 300 MG CAPSULE PO SCH ×2 (08:35→22:11)
[2020-12-12] MEDS: Carbidopa/Levodopa 25/250 TABLET PO SCH ×4 (08:36→22:11)
[2020-12-12] MEDS: Ascorbic Acid 500 MG TABLET PO SCH ×2 (08:36→16:42)
[2020-12-12] MEDS: Aspirin Enteric Coated 81 MG Tablet PO SCH (08:36)
[2020-12-12] MEDS: Apixaban 5 MG TABLET PO SCH ×2 (08:36→22:11)
[2020-12-12] MEDS: Multivit/Ca/Min/Fe/FA 1 TAB TABLET PO SCH (08:36)
[2020-12-12] MEDS: traZODone 50 MG TABLET PO SCH (22:11)
[2020-12-12] MEDS: QUEtiapine Fumarate 25 MG TABLET PO SCH (22:11)
[2020-12-12] MEDS: Latanoprost 2.5 ML BOTTLE LEFT EYE SCH (22:15)
[2020-12-13] MEDS: PrednisoLONE Acetate 1% Opth 5 ML BOTTLE LEFT EYE SCH ×4 (00:34→17:33)
[2020-12-13 04:05] LABS: Hematocrit 25.5 % (37.5-50.1); Hemoglobin 8.1 g/dL (12.9-16.9)
[2020-12-13] MEDS: Multivit/Ca/Min/Fe/FA 1 TAB TABLET PO SCH (07:52)
[2020-12-13] MEDS: Ascorbic Acid 500 MG TABLET PO SCH ×2 (07:52→17:33)
[2020-12-13] MEDS: Carbidopa/Levodopa 25/250 TABLET PO SCH ×4 (07:52→20:28)
[2020-12-13] MEDS: Cefdinir 300 MG CAPSULE PO SCH ×2 (07:52→20:28)
[2020-12-13] MEDS: Aspirin Enteric Coated 81 MG Tablet PO SCH (07:52)
[2020-12-13] MEDS: Apixaban 5 MG TABLET PO SCH ×2 (07:53→20:29)
[2020-12-13] MEDS: QUEtiapine Fumarate 25 MG TABLET PO SCH (20:29)
[2020-12-13] MEDS: traZODone 50 MG TABLET PO SCH (20:29)
[2020-12-13] MEDS: Latanoprost 2.5 ML BOTTLE LEFT EYE SCH (20:29)
[2020-12-14 00:45] LABS: Hematocrit 28.4 % (37.5-50.1)
[2020-12-14 01:01] LABS: BUN/Creatinine Ratio 32 (6-26); Blood Urea Nitrogen 28 mg/dL (8-23); Calcium 8.6 mg/dL (8.6-10.3); Carbon Dioxide 27 mEq/L (23-29); Chloride 100 mEq/L (98-107); Glucose 99 mg/dL (70-105); Magnesium 1.9 mg/dL (1.6-2.6); Osmolality,Calculated 284 (280-300); Phosphorous 3.4 mg/dL (2.7-4.5); Potassium 4.7 mEq/L (3.5-5.1); Sodium 134 mEq/L (136-145); eGFR For African Americans > 60 (> 60); eGFR For Non-African Americans > 60 (> 60)
[2020-12-14] MEDS: PrednisoLONE Acetate 1% Opth 5 ML BOTTLE LEFT EYE SCH ×5 (01:33→23:33)
[2020-12-14] MEDS: Ascorbic Acid 500 MG TABLET PO SCH ×2 (07:56→17:19)
[2020-12-14] MEDS: Multivit/Ca/Min/Fe/FA 1 TAB TABLET PO SCH (07:57)
[2020-12-14] MEDS: Apixaban 5 MG TABLET PO SCH ×2 (07:57→21:07)
[2020-12-14] MEDS: Carbidopa/Levodopa 25/250 TABLET PO SCH ×4 (07:57→21:07)
[2020-12-14] MEDS: Cefdinir 300 MG CAPSULE PO SCH (07:57)
[2020-12-14] MEDS: Aspirin Enteric Coated 81 MG Tablet PO SCH (07:57)
[2020-12-14] MEDS: traZODone 50 MG TABLET PO SCH (21:07)
[2020-12-14] MEDS: QUEtiapine Fumarate 25 MG TABLET PO SCH (21:07)
[2020-12-14] MEDS: Latanoprost 2.5 ML BOTTLE LEFT EYE SCH (21:09)
[2020-12-15] MEDS: PrednisoLONE Acetate 1% Opth 5 ML BOTTLE LEFT EYE SCH ×2 (07:07→12:33)
[2020-12-15] MEDS: Aspirin Enteric Coated 81 MG Tablet PO SCH (07:56)
[2020-12-15] MEDS: Ascorbic Acid 500 MG TABLET PO SCH (07:58)
[2020-12-15] MEDS: Apixaban 5 MG TABLET PO SCH (07:58)
[2020-12-15] MEDS: Multivit/Ca/Min/Fe/FA 1 TAB TABLET PO SCH (07:59)
[2020-12-15] MEDS: Carbidopa/Levodopa 25/250 TABLET PO SCH ×2 (07:59→12:33)
[2020-12-15] MEDS ORDERED: levoFLOXacin 750 MG TABLET PO SCH (09:00)
[2020-12-15 15:11] LABS: Adenovirus Not Detected (Not Detect); Bordetella Pertussis Not Detected (Not Detect); Chlamydophila pneumoniae Not Detected (Not Detect); Coronavirus 229E Not Detected (Not Detect); Coronavirus HKU1 Not Detected (Not Detect); Coronavirus NL63 Not Detected (Not Detect); Coronavirus OC43 Not Detected (Not Detect); Human Metapneumovirus Not Detected (Not Detect); Human Rhinovirus/Enterovirus Not Detected (Not Detect); Influenza A Subtype 2009 H1 Not Detected (Not Detect); Influenza B Not Detected (Not Detect); Mycoplasma pneumoniae Not Detected (Not Detect); Parainfluenza Virus 1 Not Detected (Not Detect); Parainfluenza Virus 2 Not Detected (Not Detect); Parainfluenza Virus 3 Not Detected (Not Detect); Parainfluenza Virus 4 Not Detected (Not Detect); Respiratory Syncytial Virus Not Detected (Not Detect); SARS-CoV-2 Not Detected (Not Detect)
[2020-12-15 15:35] VITALS: BP 129/73
== END 2020-12-15 16:20 | DRG 522 ==
LOC: 3NENU 11:26 → EMEROOARM 11:26 → SUATTDRO 14:10 → 3NENU 15:00 → 2NNU 12-05 17:12 → 3NENU 12-06 11:49 → 2NNU 12-08 15:40 → 3NENU 12-09 13:35
PROVIDERS: ADMIT Student in an Organized Health Care Education/Training Program; ATTEND Internal Medicine